=== PATIENT | male | born 1945 | race Caucasian/White ===

== ENCOUNTER → 2020-09-25 | Outpatient (CLI) | payer MEDICARE ==
--- NOTE | 2020-09-25 21:41 | KCIC ---
PA and lateral chest. HISTORY: Dyspnea on exertion, R06.00 PA and lateral views were taken of the chest. Lungs are free of infiltrates. Heart is normal in size. There is no effusion. IMPRESSION: 1. No acute chest disease. Electronically signed by: Riki Zuleta MD (09/25/2020 9:38 PM) [facility]
== END ==
LOC: KCIC 12:51
PROVIDERS: ATTEND Family Medicine
DX: R06.00 Dyspnea, unspecified (principal)
CPT/HCPCS: 71046

== ENCOUNTER → 2020-10-18 | Outpatient (CLI) | payer MEDICARE ==
--- NOTE | 2020-10-18 14:58 | RAD ---
MR#: [id number] Date of Study: 10/18/2020 Ordering Physician: BEATRIZ MARS, Referring Physician: PATRIC DUMAS Tech: MARISELA Mohr ARRT (Rosendo) (N) APPROVED REPORT Test Type: Exercise Stress Nurse/Tech: DEEPTI KHAN Test Indications: [place] Cardiac History: HTN- SEE EMR Medications: SEE EMR Medical History: SEE EMR Resting ECG: SR Resting Heart Rate: 80 bpm Resting Blood Pressure: 153/64mmHg Pretest Chest Pain: No chest pain Nurse/Tech Notes S1,S2, LUNGS CTA, DENIED CHEST PAIN OR SOA AT REST. VSS. Consent: The procedure was explained to the patient in lay terms. Informed consent was witnessed. Chriss eout was entered into [employer]. History and Stress Test performed by RT Desiree (R) (N) Stress Symptoms PT GOT SHORT OF BREATH DURING THE FIRST COUPLE OF MINUTES OF WALKING ON THE TREADMILL. BP ELEVATED. P T STOPPED BEFORE 2ND PHASE. POST EXERCISE Reason for Termination: Reached target heart rate Target HR: 124 Max HR: 150 bpm 120% of Maximum Predicted HR: 124 bpm Exercise duration: 3 min:sec, 2 Stage Exercise capacity: 7.0METs Max Blood Pressure: 196/74mmHg Blood Pressure response to exercise: Normal blood pressure response during stress. Heart Rate response to exercise: WNL Chest Pain: No. Arrhythmia: No. ARTIFACT NOTED DURING STRESS PORTION ON THE TREADMILL TEST, EKG RETURNED TO BASELINE ST Change: No. INTERPRETATION Stress EKG Conclusion: Baseline EKG showed sinus rhythm. Nondiagnostic changes at peak stress. No a rrhythmias. Imaging Protocol IMAGE PROTOCOL: Rest Tc-99m/stress Tc-99m 1 day Rest: Stress: Viability: Radiopharm.Tc99m [id number] Sestamibi Dose10.2mCi 31mCi Img Date 10/18/2020 10/18/2020 Inj-Img [id number]. 60min. Rest Admin Site:IV - Right AntecubitalAdministrator:MARISELA Mohr ARRT (R)(N) Stress Admin Site: IV - Right AntecubitalAdministrator: Homero Amaro, RT (R)(N) STRESS DATA End Diast. Vol.71.0mlLVEDV index BSA35.0ml End Syst. Vol.12.0mlLVESV index BSA6.0ml Myocardial Qepz427.0gEject. Qatvszcl78.0% Stress Scores Regional WT1.00Summed WT3.00 Regional WM0.00Summed WM0.00 Study quality was good. Left Ventricular size was Normal at Rest and Stress. Lung uptake was . Left Ventricular ejection fraction is 84%. The rest and stress images show normal perfusion, normal contraction and thickening. LV Perf. Quant 17 Seg. SSS1.00 17 Seg. SRS0.00 17 Seg. SDS1.00 Stress Defect Extent (% LAD)0.00Rest Defect Extent (% LAD)0.00Rev. Defect Extent (% LAD)0.00 Stress Defect Extent (% LCX) 0.00Rest Defect Extent (% LCX)0.00Rev. Defect Extent (% LCX)0.00 Stress Defect Extent (% RCA)0.00Rest Defect Extent (% RCA)0.00Rev. Defect Extent (% RCA)0.00 Stress Defect Extent (% STEVE)0.00Rest Defect Extent (% STEVE)0.00Rev. Defect Extent (% STEVE)0.00 Conclusion 1. Treadmill exercise cardioisotope stress test did not show any evidence of ischemia or infarct. 2. Normal left ventricular systolic function with ejection fraction calculated at 84%. 3. Low risk for cardiac events. Signed by : Preston Freire, Electronically Approved : 10/18/2020 14:58:10
== END ==
LOC: NM 08:40
PROVIDERS: ATTEND Internal Medicine Cardiovascular Disease
DX: R06.00 Dyspnea, unspecified (principal)
CPT/HCPCS: 78452; 93017; A9500